=== PATIENT | female | born 1990 | race Caucasian/White ===

== ENCOUNTER 2017-01-05 21:24 | Emergency (ER) | payer OTHER ==
[~2017-01-05] VITALS: Ht 170.2 cm; Wt 146.2 kg
[~2017-01-05 21:24] MED LIST: FLAG500T PO
[2017-01-05 21:28] VITALS: BP 134/73; PULSE 72; RESP 18; TEMP 97.7; O2SAT 97
[2017-01-05] MEDS ORDERED: SODIUM CHLOR 0.9% 1000 ML INJ 1,000 ML IV SCH (21:41)
[2017-01-05] MEDS ORDERED: MORPHINE SULFATE 4 MG/ML INJ IV PUSH ONE ×2 (21:45→23:45)
[2017-01-05] MEDS ORDERED: ONDANSETRON HCL 4 MG/2 ML VIAL IVP ONE (21:45)
[2017-01-05] MEDS ORDERED: SODIUM CHLORIDE 0.9% FLUSH 10 ML FLUSH IV FLUSH PRN (21:45)
[2017-01-05] MEDS ORDERED: KETOROLAC TROMETHAMINE 30 MG/ML (IVP) VIAL IVP ONE (21:45)
--- NOTE | 2017-01-05 21:48 | PD ---
HPI Chief Complaint: Flank/Kidney Pain Time Seen by Provider: 21:35 Travel History International Travel<30 days: No Contact w/Intl Traveler<30days: No Traveled to known affect area: No History of Present Illness HPI The patient is a 26-year-old female who presents to the emergency department for left flank pain. The patient states she developed left flank pain this morning which is progressively worsened. Pain is located left lower flank, radiates into the suprapubic region and into the left lower back. The patient initially was crampy, intermittent, but is now sharper and more constant. The patient does complain of mild nausea but denies any vomiting, diarrhea, or constipation. The patient's last menstrual cycle ended 2 days ago , she denies any current vaginal bleeding or discharge. The patient denies any dysuria, frequency, urgency, fever, chills, or sweats. The patient denies any previous abdominal surgeries. Symptoms are moderate without any current alleviating or exacerbating factors. The patient denies any history of nephrolithiasis, colitis, or diverticulitis. PFSH Past Medical History Medical History: Denies Significant Hx Cancer: No Psychiatric: No Seizures: No Thyroid Disease: No Ulcer: No ?: Not LMP: ended 2 days ago Past Surgical History Surgical History: No Previous Surgery Social History Alcohol Use: No Tobacco Use: Yes (2-3 CIGARETTES PER WEEK) Substance Use: No Allergies-Medications (Allergen,Severity, Reaction): Coded Allergies: Decadron (Unverified Allergy, Intermediate, HIVES, RASH, 01/05/17) Reported Meds & Prescriptions Reported Meds & Active Scripts Active No Active Prescriptions or Reported Medications Review of Systems Except as stated in HPI: all other systems reviewed are Neg General / Constitutional: No: Fever HENT: No: Lightheadedness Cardiovascular: No: Chest Pain or Discomfort Respiratory: No: Shortness of Breath Gastrointestinal: Positive: Nausea, Abdominal Pain, No: Vomiting, Diarrhea, Constipation, Changes in Bowel Habits Genitourinary: Positive: Flank Pain, No: Urgency, Frequency, Dysuria, Hematuria, Discharge, Vaginal Bleeding Skin: No Rash Physical Exam Narrative GENERAL: Awake, alert, pleasant 26-year-old female who appears her stated age and is in no acute respiratory distress. SKIN: Focused skin assessment warm/dry. HEAD: Atraumatic. Normocephalic. EYES: Pupils equal and round. No scleral icterus. No injection or drainage. ENT: No nasal bleeding or discharge. Mucous membranes pink and moist. NECK: Trachea midline. No JVD. CARDIOVASCULAR: Regular rate and rhythm. No murmur appreciated. RESPIRATORY: No accessory muscle use. Clear to auscultation. Breath sounds equal bilaterally. GASTROINTESTINAL: Abdomen soft, obese, mild tenderness in the left flank, left lower quadrant, suprapubic. Negative Horta's. Negative McBurney's. Back: Positive left CVA tenderness. MUSCULOSKELETAL: No obvious deformities. No clubbing. No cyanosis. No edema. NEUROLOGICAL: Awake and alert. No obvious cranial nerve deficits. Motor grossly within normal limits. Normal speech. PSYCHIATRIC: Appropriate mood and affect; insight and judgment normal. Data Data Last Documented VS Vital Signs Date Time Temp Pulse Resp B/P Pulse Ox O2 Delivery O2 Flow Rate FiO2 01/05/17 23:22 76 122/60 100 Room Air 01/05/17 22:16 18 01/05/17 21:28 97.7 Orders Complete Blood Count With Diff (01/05/17 21:41) Comprehensive Metabolic Panel (01/05/17 21:41) Lipase (01/05/17 21:41) Urinalysis - C+S If Indicated (01/05/17 21:41) Ct Abd/Pel W/O Iv Contrast (01/05/17 21:41) Iv Access Insert/Monitor (01/05/17 21:41) Ecg Monitoring (01/05/17 21:41) Oximetry (01/05/17 21:41) Morphine Inj (Morphine Inj) (01/05/17 21:45) Ondansetron Inj (Zofran Inj) (01/05/17 21:45) Sodium Chlor 0.9% 1000 Ml Inj (Ns 1000 M (01/05/17 21:41) Sodium Chloride 0.9% Flush (Ns Flush) (01/05/17 21:45) Ketorolac Inj (Toradol Inj) (01/05/17 21:45) Ed Urine Pregnancytest Poc (01/05/17 21:41) Us Pelvis Comp W Doppler (01/05/17 23:37) Labs Laboratory Tests Test 01/05/17 01/05/17 21:45 21:55 Urine Color YELLOW Urine Turbidity SLIGHT Urine pH 7.0 Urine Specific [place] 1.021 Urine Protein TRACE mg/dL Urine Glucose (UA) NEG mg/dL Urine Ketones NEG mg/dL Urine Occult Blood LARGE Urine Nitrite NEG Urine Bilirubin NEG Urine Leukocyte Esterase TRACE Urine RBC 10-14 /hpf Urine WBC 6-8 /hpf Urine Squamous Epithelial 6-8 /hpf Cells Urine Bacteria OCC /hpf Microscopic Urinalysis Comment CULT NOT INDICATED White Blood Count 8.1 TH/MM3 Red Blood Count 4.62 MIL/MM3 Hemoglobin 11.8 GM/DL Hematocrit 35.8 % Mean Corpuscular Volume 77.4 FL Mean Corpuscular Hemoglobin 25.5 PG Mean Corpuscular Hemoglobin 33.0 % Concent Red Cell Distribution Width 13.9 % Platelet Count 366 TH/MM3 Mean Platelet Volume 7.5 FL Neutrophils (%) (Auto) 57.4 % Lymphocytes (%) (Auto) 32.5 % Monocytes (%) (Auto) 7.6 % Eosinophils (%) (Auto) 1.7 % Basophils (%) (Auto) 0.8 % Neutrophils # (Auto) 4.7 TH/MM3 Lymphocytes # (Auto) 2.6 TH/MM3 Monocytes # (Auto) 0.6 TH/MM3 Eosinophils # (Auto) 0.1 TH/MM3 Basophils # (Auto) 0.1 TH/MM3 CBC Comment DIFF FINAL Differential Comment Sodium Level 140 MEQ/L Potassium Level 3.8 MEQ/L Chloride Level 106 MEQ/L Carbon Dioxide Level 27.0 MEQ/L Anion Gap 7 MEQ/L Blood Urea Nitrogen 15 MG/DL Creatinine 0.88 MG/DL Estimat Glomerular Filtration 77 ML/MIN Rate Random Glucose 100 MG/DL Calcium Level 8.9 MG/DL Total Bilirubin 0.2 MG/DL Aspartate Amino Transf 14 U/L (AST/SGOT) Alanine Aminotransferase 16 U/L (ALT/SGPT) Alkaline Phosphatase 81 U/L Total Protein 7.3 GM/DL Albumin 3.3 GM/DL Lipase 121 U/L MDM Medical Decision Making Medical Screen Exam Complete: Yes Emergency Medical Condition: Yes Medical Record Reviewed: Yes Interpretation(s) Laboratory Tests Test 01/05/17 01/05/17 21:45 21:55 Urine Color YELLOW Urine Turbidity SLIGHT Urine pH 7.0 Urine Specific [place] 1.021 Urine Protein TRACE mg/dL Urine Glucose (UA) NEG mg/dL Urine Ketones NEG mg/dL Urine Occult Blood LARGE Urine Nitrite NEG Urine Bilirubin NEG Urine Leukocyte Esterase TRACE Urine RBC 10-14 /hpf Urine WBC 6-8 /hpf Urine Squamous Epithelial 6-8 /hpf Cells Urine Bacteria OCC /hpf Microscopic Urinalysis Comment CULT NOT INDICATED White Blood Count 8.1 TH/MM3 Red Blood Count 4.62 MIL/MM3 Hemoglobin 11.8 GM/DL Hematocrit 35.8 % Mean Corpuscular Volume 77.4 FL Mean Corpuscular Hemoglobin 25.5 PG Mean Corpuscular Hemoglobin 33.0 % Concent Red Cell Distribution Width 13.9 % Platelet Count 366 TH/MM3 Mean Platelet Volume 7.5 FL Neutrophils (%) (Auto) 57.4 % Lymphocytes (%) (Auto) 32.5 % Monocytes (%) (Auto) 7.6 % Eosinophils (%) (Auto) 1.7 % Basophils (%) (Auto) 0.8 % Neutrophils # (Auto) 4.7 TH/MM3 Lymphocytes # (Auto) 2.6 TH/MM3 Monocytes # (Auto) 0.6 TH/MM3 Eosinophils # (Auto) 0.1 TH/MM3 Basophils # (Auto) 0.1 TH/MM3 CBC Comment DIFF FINAL Differential Comment Sodium Level 140 MEQ/L Potassium Level 3.8 MEQ/L Chloride Level 106 MEQ/L Carbon Dioxide Level 27.0 MEQ/L Anion Gap 7 MEQ/L Blood Urea Nitrogen 15 MG/DL Creatinine 0.88 MG/DL Estimat Glomerular Filtration 77 ML/MIN Rate Random Glucose 100 MG/DL Calcium Level 8.9 MG/DL Total Bilirubin 0.2 MG/DL Aspartate Amino Transf 14 U/L (AST/SGOT) Alanine Aminotransferase 16 U/L (ALT/SGPT) Alkaline Phosphatase 81 U/L Total Protein 7.3 GM/DL Albumin 3.3 GM/DL Lipase 121 U/L Differential Diagnosis Differential diagnosis includes nephrolithiasis, pyelonephritis, diverticulitis , ectopic , UTI, ovarian torsion, ovarian cyst, colitis. Narrative Course IV was established, labs are drawn and sent, and the patient was placed on cardiac telemetry monitoring and continuous pulse oximetry monitoring. The patient was administered IV fluids, morphine, Toradol, and Zofran. UA was sent to lab and bedside UA test was obtained. CT of the abdomen and pelvis without contrast was ordered to evaluate for possible nephrolithiasis. UA test was negative. UA reveals a few RBCs and WBCs. However, CT of the abdomen and pelvis reveals a 5.8 x 8.6 cm left ovarian dermoid or teratoma with small moderate free fluid in the pelvis, no acute findings within the abdomen. Therefore, formal ultrasound was ordered to rule out torsion. Patient signed out to the physician, Dr. Arias, at midnight. If the patient has ovarian torsion, she very well may need surgery, if it is negative, she will need outpatient ARROW POINT ATTACHER follow-up for definitive management. Diagnosis Primary Impression: Ovarian mass, left Scripts No Active Prescriptions or Reported Meds Condition: Stable Rojas Hansen MD January 05, 2017 21:48
[2017-01-05 22:16] VITALS: PULSE 74; RESP 18; O2SAT 98
[2017-01-05 22:20] LABS: BLOOD, URINE LARGE (NEG); GLUCOSE,URINE NEG (NEG); KETONE, URINE NEG (NEG); NITRITE,URINE NEG (NEG)
[2017-01-05 22:21] LABS: AUTOMATED NEUTROPHIL # 4.7 TH/MM3 (1.8-7.7); BASOPHIL # 0.1 TH/MM3 (0-0.2); BASOPHIL % 0.8 % (0.0-2.0); EOSINOPHIL # 0.1 TH/MM3 (0-0.4); EOSINOPHIL % 1.7 % (0.0-4.0); HEMATOCRIT 35.8 % (35.0-46.0); HEMO FLAGS DIFF FINAL; LYMPH % 32.5 % (9.0-44.0); LYMPHOCYTE # 2.6 TH/MM3 (1.0-4.8); MEAN CELL VOLUME 77.4 FL (80.0-100.0); MEAN CORPUSCULAR HEMOGLOBIN 25.5 PG (27.0-34.0); MONO % 7.6 % (0.0-8.0); NEUT % 57.4 % (16.0-70.0); PLATELET COUNT 366 TH/MM3 (150-450); RED BLOOD COUNT 4.62 MIL/MM3 (4.00-5.30); RED CELL DISTRIBUTION WIDTH 13.9 % (11.6-17.2); WHITE BLOOD COUNT 8.1 TH/MM3 (4.0-11.0)
[2017-01-05 22:29] LABS: CHLORIDE 106 MEQ/L (98-107); POTASSIUM 3.8 MEQ/L (3.5-5.1); SODIUM (NA) 140 MEQ/L (136-145)
[2017-01-05 22:30] LABS: URINE COLOR YELLOW (YELLW/STRAW)
[2017-01-05 22:31] LABS: BACTERIA, URINE OCC /hpf; COMMENT (UR) CULT NOT INDICATED; CULTURE IF INDICATED CULT NOT INDICATED
[2017-01-05 22:33] LABS: ANION GAP 7 MEQ/L (5-15); BLOOD UREA NITROGEN 15 MG/DL (7-18)
[2017-01-05 22:36] LABS: ALT (GPT) 16 U/L (10-53); AST (GOT) 14 U/L (15-37); GLOMERULAR FILTRATION RATE 77 ML/MIN (>89)
[2017-01-05 22:37] LABS: TOTAL BILIRUBIN ADULT 0.2 MG/DL (0.2-1.0)
[2017-01-05 22:39] LABS: ALKALINE PHOSPHATASE 81 U/L (45-117)
[2017-01-05 23:22] VITALS: BP 122/60; PULSE 76; O2SAT 100
--- NOTE | 2017-01-05 23:36 | RADHPO ---
EXAM DATE/TIME: 01/05/2017 23:03 [facility] COMPARISON: No previous studies available for comparison. INDICATIONS : Left flank pain. ORAL CONTRAST: No oral contrast ingested. RADIATION DOSE: 28 CTDIvol (mGy) MEDICAL HISTORY : None SURGICAL HISTORY : None. ENCOUNTER: Initial ACUITY: 1 day PAIN SCALE: 6/10 LOCATION: Left flank TECHNIQUE: Volumetric scanning of the abdomen and pelvis was performed. Using automated exposure control and ad justment of the mA and/or kV according to patient size, radiation dose was kept as low as reasonably achievable to obtain optimal diagnostic quality images. FINDINGS: Lung bases are clear and no acute findings in the liver, spleen, adrenals, kidneys pancreas and no fr ee fluid. No bowel obstruction. No adenopathy. No calcified gallstones or biliary ductal dilatation. Within the pelvis there is a left adnexal mass measuring up to 8.6 x 5.8 cm. Mass contains dense calc ification and fat and is most characteristic of a left ovarian dermoid or teratoma. CONCLUSION: 1. 5.8 x 8.6 cm left ovarian dermoid or teratoma. Small amount of free fluid in the pelvis. 2. No acute findings within the abdomen. Specifically no renal calculi or obstructive uropathy. Small amount of free fluid present in the pelvis. Armando Avila MD on January 05, 2017 at 23:29 Board Certified Radiologist. This report was verified electronically.
[2017-01-05] MEDS ORDERED: SODIUM CHLOR 0.9% 1000 ML INJ 1,000 ML IV ONE (23:45)
--- NOTE | 2017-01-05 23:47 | PD ---
Physical Exam Date Seen by Provider: January 05, 2017 Time Seen by Provider: 23:47 Narrative Accepted in transfer of care from Dr. Hansen Data Data Last Documented VS Vital Signs Date Time Temp Pulse Resp B/P Pulse Ox O2 Delivery O2 Flow Rate FiO2 01/05/17 23:22 76 122/60 100 Room Air 01/05/17 22:16 18 01/05/17 21:28 97.7 Orders Complete Blood Count With Diff (01/05/17 21:41) Comprehensive Metabolic Panel (01/05/17 21:41) Lipase (01/05/17 21:41) Urinalysis - C+S If Indicated (01/05/17 21:41) Ct Abd/Pel W/O Iv Contrast (01/05/17 21:41) Iv Access Insert/Monitor (01/05/17 21:41) Ecg Monitoring (01/05/17 21:41) Oximetry (01/05/17 21:41) Morphine Inj (Morphine Inj) (01/05/17 21:45) Ondansetron Inj (Zofran Inj) (01/05/17 21:45) Sodium Chlor 0.9% 1000 Ml Inj (Ns 1000 M (01/05/17 21:41) Sodium Chloride 0.9% Flush (Ns Flush) (01/05/17 21:45) Ketorolac Inj (Toradol Inj) (01/05/17 21:45) Ed Urine Pregnancytest Poc (01/05/17 21:41) Morphine Inj (Morphine Inj) (01/05/17 23:45) Sodium Chlor 0.9% 1000 Ml Inj (Ns 1000 M (01/05/17 23:45) Us Pelvis Comp W Dop Transvag (01/05/17 23:37) Labs Laboratory Tests Test 01/05/17 01/05/17 21:45 21:55 Urine Color YELLOW Urine Turbidity SLIGHT Urine pH 7.0 Urine Specific [place] 1.021 Urine Protein TRACE mg/dL Urine Glucose (UA) NEG mg/dL Urine Ketones NEG mg/dL Urine Occult Blood LARGE Urine Nitrite NEG Urine Bilirubin NEG Urine Leukocyte Esterase TRACE Urine RBC 10-14 /hpf Urine WBC 6-8 /hpf Urine Squamous Epithelial 6-8 /hpf Cells Urine Bacteria OCC /hpf Microscopic Urinalysis Comment CULT NOT INDICATED White Blood Count 8.1 TH/MM3 Red Blood Count 4.62 MIL/MM3 Hemoglobin 11.8 GM/DL Hematocrit 35.8 % Mean Corpuscular Volume 77.4 FL Mean Corpuscular Hemoglobin 25.5 PG Mean Corpuscular Hemoglobin 33.0 % Concent Red Cell Distribution Width 13.9 % Platelet Count 366 TH/MM3 Mean Platelet Volume 7.5 FL Neutrophils (%) (Auto) 57.4 % Lymphocytes (%) (Auto) 32.5 % Monocytes (%) (Auto) 7.6 % Eosinophils (%) (Auto) 1.7 % Basophils (%) (Auto) 0.8 % Neutrophils # (Auto) 4.7 TH/MM3 Lymphocytes # (Auto) 2.6 TH/MM3 Monocytes # (Auto) 0.6 TH/MM3 Eosinophils # (Auto) 0.1 TH/MM3 Basophils # (Auto) 0.1 TH/MM3 CBC Comment DIFF FINAL Differential Comment Sodium Level 140 MEQ/L Potassium Level 3.8 MEQ/L Chloride Level 106 MEQ/L Carbon Dioxide Level 27.0 MEQ/L Anion Gap 7 MEQ/L Blood Urea Nitrogen 15 MG/DL Creatinine 0.88 MG/DL Estimat Glomerular Filtration 77 ML/MIN Rate Random Glucose 100 MG/DL Calcium Level 8.9 MG/DL Total Bilirubin 0.2 MG/DL Aspartate Amino Transf 14 U/L (AST/SGOT) Alanine Aminotransferase 16 U/L (ALT/SGPT) Alkaline Phosphatase 81 U/L Total Protein 7.3 GM/DL Albumin 3.3 GM/DL Lipase 121 U/L [facility] Medical Record Reviewed: Yes Supervised Visit with SHERYL: No Interpretation(s) pelvic US: CONCLUSION: 1. 5.5 cm left ovarian mass better characterized on recent CT as an ovarian dermoid. 2. Free fluid in the pelvis. Right ovary not clearly visualized. 3. Uterus unremarkable except nabothian cysts. Armando Avila MD on January 06, 2017 at 0:51 Board Certified Radiologist. This report was verified electronically. ADDENDUM: There is positive blood flow to the left ovary without evidence for torsion. Armando Avila MD on January 06, 2017 at 1:01 Board Certified Radiologist. This report was verified electronically. Differential Diagnosis Accepted in transfer of care from Dr. Hansen; please refer to his dictation Narrative Course Accepted in transfer of care from Dr. Hansen; follow-up of pending ultrasound and patient disposition At 1 AM discussed imaging study ultrasound with Doppler with reading radiologist Dr. Avila who reports that there is indeed blood supply to the left ovary without concern for ovarian torsion by ultrasound imaging. This information is shared with the patient has resting comfortably and in no apparent distress or discomfort on the exam stretcher. Patient this time is stable for outpatient management and follow-up with plant health manager. Diagnosis Primary Impression: Ovarian mass, left Referrals: [facility] Sewer call for appointment Technical Implementation Lead LASER BEAM COLOR SCANNER OPERATOR: Dr Raya Patient Instructions: General Instructions Additional Instruction: Follow-up with plant health manager call office to schedule follow-up appointment Return to the emergency department for any concerns or change in condition May take as tolerated ibuprofen/Advil/Motrin 800 mg as often as every 8 hours as tolerated as needed for pain associated with inflammation Return to the emergency department for any concerns or change in condition Increase fluid hydration Scripts No Active Prescriptions or Reported Meds Disposition: 01 DISCHARGE HOME Condition: Stable Shayna Arias MD January 05, 2017 23:47
--- NOTE | 2017-01-06 00:56 | RADHPO ---
EXAM DATE/TIME: 01/05/2017 23:58 This report includes an Addendum and supersedes previous reports for this exam. [facility] COMPARISON: No previous studies available for comparison. INDICATIONS : Pelvic pain. MEDICAL HISTORY : Pelvic pain. SURGICAL HISTORY : None. ENCOUNTER: Initial ACUITY: 1 day PAIN SCORE: 6/10 LOCATION: Bilateral pelvis MEASUREMENTS: UTERUS: 9.9 x 5.1 x 5.2 cm ENDOMETRIAL STRIPE: 11 mm RIGHT OVARY: 3.8 x 1.5 x 1.5 cm LEFT OVARY: Not visualized. FINDINGS: Examination is somewhat limited. Right ovary not clearly visualized. There is a left ovarian mass lola suring up to 5.5 cm which correlates with recent CT findings of a dermoid. Small amount of free fluid in the cul-de-sac. Uterus unremarkable except for nabothian cysts measuring up to 1.6 cm. CONCLUSION: 1. 5.5 cm left ovarian mass better characterized on recent CT as an ovarian dermoid. 2. Free fluid in the pelvis. Right ovary not clearly visualized. 3. Uterus unremarkable except nabothian cysts. Armando Avila MD on January 06, 2017 at 0:51 Board Certified Radiologist. This report was verified electronically. ADDENDUM: There is positive blood flow to the left ovary without evidence for torsion. Armando Avila MD on January 06, 2017 at 1:01 Board Certified Radiologist. This report was verified electronically.
== END 2017-01-06 01:17 | disposition home or self-care (01) ==
LOC: PHED 21:24
DX: N83.9 Noninflammatory disorder of ovary, fallopian tube and broad ligament, unspecified (principal); Z72.0 Tobacco use
CPT/HCPCS: 74176; 76830; 76856; 80053; 81001; 83690; 84703; 85025; 93975; 96361; 96374; 96375; 96376; 99284; J1885; J2270; J2405; J7030

== ENCOUNTER 2017-01-13 01:49 | Emergency (ER) | payer OTHER ==
[~2017-01-13] VITALS: Ht 170.2 cm; Wt 120.0 kg
[2017-01-13 01:52] VITALS: BP 160/88; PULSE 78; RESP 16; TEMP 97.5; O2SAT 100
--- NOTE | 2017-01-13 03:40 | PD ---
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 Patient was just recently seen in the emergency department identified to have large ovarian mass concerning for teratoma. Patient was seen by her WINCH STRIPPER Dr. Roman on Saturday but they were unable to retrieve medical records so made an appointment to see the patient again on Saturday. Patient states this evening she took ibuprofen without relief of onset of pain that has recurred and is as severe or the same as a few days ago when she was seen in the emergency department. Patient does not report any vaginal discharge or vaginal bleeding. No fever or chills. No anorexia. PFSH Past Medical History Narrative Medical 1 PARA 1 ovarian cyst teratoma; no tobacco use alcohol use; nursing notes reviewed Cancer: No Diminished Hearing: No Psychiatric: No Immunizations Current: Yes Seizures: No Thyroid Disease: No Ulcer: No Tetanus Vaccination: Unknown Influenza Vaccination: Yes ?: Not LMP: 01/01/17 : 1 Para: 1 Past Surgical History Oral Surgery: Yes Social History Alcohol Use: No Tobacco Use: No Substance Use: No Allergies-Medications (Allergen,Severity, Reaction): Coded Allergies: Decadron (Unverified Allergy, Intermediate, HIVES, RASH, 01/13/17) Reported Meds & Prescriptions Reported Meds & Active Scripts Active No Active Prescriptions or Reported Medications Review of Systems Except as stated in HPI: all other systems reviewed are Neg Physical Exam Narrative GENERAL: Well-developed obese female in no acute distress no respiratory distress SKIN: Warm and dry. HEAD: Normocephalic. EYES: No scleral icterus. No injection or drainage. NECK: Supple, trachea midline. No JVD or lymphadenopathy. CARDIOVASCULAR: Regular rate and rhythm without murmurs, gallops, or rubs. RESPIRATORY: Breath sounds equal bilaterally. No accessory muscle use. GASTROINTESTINAL: Abdomen soft, bilateral lower quadrant tenderness right greater than left no guarding or rebound, nondistended. MUSCULOSKELETAL: No cyanosis, or edema. BACK: Nontender without obvious deformity. Left-sided CVA tenderness. Data Data Last Documented VS Vital Signs Date Time Temp Pulse Resp B/P Pulse Ox O2 Delivery O2 Flow Rate FiO2 01/13/17 06:04 68 14 139/74 100 Room Air 01/13/17 01:52 97.5 Orders Basic Metabolic Panel (Bmp) (01/13/17 03:36) Complete Blood Count With Diff (01/13/17 03:36) Urinalysis - C+S If Indicated (01/13/17 03:36) Iv Access Insert/Monitor (01/13/17 03:36) Ed Urine Pregnancytest Poc (01/13/17 03:36) Ondansetron Inj (Zofran Inj) (01/13/17 03:45) Morphine Inj (Morphine Inj) (01/13/17 03:45) Sodium Chlor 0.9% 1000 Ml Inj (Ns 1000 M (01/13/17 03:45) Ketorolac Inj (Toradol Inj) (01/13/17 06:15) Labs Laboratory Tests Test 01/13/17 04:35 White Blood Count 8.6 TH/MM3 Red Blood Count 4.98 MIL/MM3 Hemoglobin 12.6 GM/DL Hematocrit 38.8 % Mean Corpuscular Volume 77.9 FL Mean Corpuscular Hemoglobin 25.4 PG Mean Corpuscular Hemoglobin 32.6 % Concent Red Cell Distribution Width 14.7 % Platelet Count 357 TH/MM3 Mean Platelet Volume 7.6 FL Neutrophils (%) (Auto) 65.5 % Lymphocytes (%) (Auto) 25.8 % Monocytes (%) (Auto) 7.0 % Eosinophils (%) (Auto) 1.4 % Basophils (%) (Auto) 0.3 % Neutrophils # (Auto) 5.6 TH/MM3 Lymphocytes # (Auto) 2.2 TH/MM3 Monocytes # (Auto) 0.6 TH/MM3 Eosinophils # (Auto) 0.1 TH/MM3 Basophils # (Auto) 0.0 TH/MM3 CBC Comment DIFF FINAL Differential Comment Urine Color LIGHT-YELLOW Urine Turbidity HAZY Urine pH 7.5 Urine Specific [place] 1.008 Urine Protein NEG mg/dL Urine Glucose (UA) NEG mg/dL Urine Ketones NEG mg/dL Urine Occult Blood NEG Urine Nitrite NEG Urine Bilirubin NEG Urine Urobilinogen LESS THAN 2.0 MG/DL Urine Leukocyte Esterase MOD Urine RBC 1 /hpf Urine WBC 4 /hpf Urine Squamous Epithelial 4 /hpf Cells Urine Bacteria RARE /hpf Microscopic Urinalysis Comment CULT NOT INDICATED Sodium Level 140 MEQ/L Potassium Level 4.2 MEQ/L Chloride Level 103 MEQ/L Carbon Dioxide Level 27.3 MEQ/L Anion Gap 10 MEQ/L Blood Urea Nitrogen 11 MG/DL Creatinine 0.82 MG/DL Estimat Glomerular Filtration 83 ML/MIN Rate Random Glucose 99 MG/DL Calcium Level 8.7 MG/DL MDM Medical Decision Making Medical Screen Exam Complete: Yes Emergency Medical Condition: Yes Medical Record Reviewed: Yes Interpretation(s) Vital Signs Date Time Temp Pulse Resp B/P Pulse Ox O2 Delivery O2 Flow Rate FiO2 01/13/17 06:04 68 14 139/74 100 Room Air 01/13/17 01:52 97.5 78 16 160/88 100 Room Air CBC & BMP Diagram 01/13/17 04:35 [id number] hCG: Negative Differential Diagnosis Renal colic ruptured ovarian cysts ectopic torsion appendicitis musculoskeletal pain andrew Narrative Course iv ACCESS OBTAINED SPECIMENS COLLECTED AND SENT FOR RESULTING patient administered morphine sulfate 4 mg IV and Zofran 4 mg IV along with normal saline bolus It is now 6 AM patient is clinically improved minimal tenderness to direct palpation of the abdomen no guarding or rebound; patient just had CT abdomen and pelvis on the . Patient's had no fever no chills no vomiting no dysuria no frequency no abnormal normal vaginal bleeding. Patient is desirous of being discharged to home. At this point in time and seems patient is stable for outpatient management and she is to follow-up with her weight yardage checker as scheduled Saturday. Diagnosis Primary Impression: Recurrent abdominal pain Additional Impression: Ovarian mass, left Referrals: Cotton Farmer 2 days Patient Instructions: General Instructions, Narcotic given in the ED Departure Forms: Tests/Procedures, Work Release Special Instructions: no work x 2 days Additional Instructions: Increase fluid hydration No work for 2 days Monitor temperature every 4 hours with thermometer take acetaminophen/Tylenol every 4 hours for fever 100.4F or greater Take ibuprofen/Advil 6 and a milligrams as often as every 6 hours Med/Other Pt SpecificInfo: Prescription(s) given Scripts Hydrocodone-Acetaminophen (Lortab)5-325 Mg Tab1 Tab PO Q6H PRN (PAIN) #10 TAB Ref 0 Prov:Shayna Arias MD 5/28/17 Ondansetron Odt (Zofran Odt)4 Mg Tab4 Mg SL Q6HR PRN (Nausea/Vomiting) #10 TAB Ref 0 Prov:Shayna Arias MD 01/13/17 Disposition: 01 DISCHARGE HOME Condition: Stable Shayna Arias MD January 13, 2017 03:40
[2017-01-13] MEDS ORDERED: MORPHINE SULFATE 4 MG/ML INJ IV PUSH ONE (03:45)
[2017-01-13] MEDS ORDERED: ONDANSETRON HCL 4 MG/2 ML VIAL IV PUSH ONE (03:45)
[2017-01-13] MEDS ORDERED: SODIUM CHLOR 0.9% 1000 ML INJ 1,000 ML IV ONE (03:45)
[2017-01-13 05:05] LABS: AUTOMATED NEUTROPHIL # 5.6 TH/MM3 (1.8-7.7); BASOPHIL % 0.3 % (0.0-2.0); EOSINOPHIL # 0.1 TH/MM3 (0-0.4); EOSINOPHIL % 1.4 % (0.0-4.0); HEMATOCRIT 38.8 % (35.0-46.0); HEMO FLAGS DIFF FINAL; LYMPH % 25.8 % (9.0-44.0); LYMPHOCYTE # 2.2 TH/MM3 (1.0-4.8); MEAN CELL VOLUME 77.9 FL (80.0-100.0); MEAN CORPUSCULAR HEMOGLOBIN 25.4 PG (27.0-34.0); MEAN CORPUSCULAR HGB CONC 32.6 % (32.0-36.0); NEUT % 65.5 % (16.0-70.0); PLATELET COUNT 357 TH/MM3 (150-450); RED BLOOD COUNT 4.98 MIL/MM3 (4.00-5.30); RED CELL DISTRIBUTION WIDTH 14.7 % (11.6-17.2); WHITE BLOOD COUNT 8.6 TH/MM3 (4.0-11.0)
[2017-01-13 05:12] LABS: BACTERIA, URINE RARE /hpf; BLOOD, URINE NEG (NEG); COMMENT (UR) CULT NOT INDICATED; CULTURE IF INDICATED CULT NOT INDICATED; GLUCOSE,URINE NEG (NEG); KETONE, URINE NEG (NEG); NITRITE,URINE NEG (NEG); PH, URINE 7.5 (5.0-8.5); SQUAMOUS EPITHELIAL CELL URINE 4 /hpf (0-5); URINE COLOR LIGHT-YELLOW (YELLW/STRAW)
[2017-01-13 05:19] LABS: BICARBONATE 27.3 MEQ/L (21.0-32.0); POTASSIUM 4.2 MEQ/L (3.5-5.1)
[2017-01-13 06:04] VITALS: BP 139/74; PULSE 68; RESP 14; O2SAT 100
[2017-01-13] MEDS ORDERED: KETOROLAC TROMETHAMINE 30 MG/ML (IVP) VIAL IV PUSH ONE (06:15)
[2017-01-13] MEDS ORDERED: HYDR-3533 PO (06:46)
[2017-01-13] MEDS ORDERED: ZOFR4TAB3 SL (06:46)
== END 2017-01-13 07:26 | disposition home or self-care (01) ==
LOC: NEPC 01:49
DX: R10.31 Right lower quadrant pain (principal); N83.9 Noninflammatory disorder of ovary, fallopian tube and broad ligament, unspecified
CPT/HCPCS: 80048; 81001; 84703; 85025; 96374; 96375; 99284; J1885; J2270; J2405; J7030

== ENCOUNTER 2017-09-17 20:40 | Emergency (ER) | payer OTHER ==
[~2017-09-17] VITALS: Ht 170.2 cm; Wt 148.3 kg
[~2017-09-17 20:40] MED LIST changes: -FLAG500T PO; +HYDR-3533 PO; +ZOFR4TAB3 SL
[2017-09-17 20:56] VITALS: BP 130/80; PULSE 92; RESP 18; TEMP 98.1; O2SAT 98
[2017-09-17 22:50] LABS: BILIRUBIN, URINE NEG (NEG); GLUCOSE,URINE NEG (NEG); KETONE, URINE NEG (NEG); NITRITE,URINE NEG (NEG); PH, URINE 5.5 (5.0-8.5); URINE LEUKOCYTE ESTERASE NEG (NEG)
[2017-09-17 22:55] LABS: BLOOD, URINE TRACE (NEG)
[2017-09-17 22:57] LABS: RBC, URINE 0-2 /hpf (0-3); SQUAMOUS EPITHELIAL CELL URINE 0-5 /hpf (0-5); URINE COLOR STRAW (YELLW/STRAW); WBC, URINE 0-2 /hpf (0-5)
[2017-09-17] MEDS ORDERED: LEVO.075 PO (22:59)
[2017-09-17] MEDS ORDERED: PRIL20TA2 (22:59)
[2017-09-17] MEDS ORDERED: VALS1TAB63 PO (22:59)
[2017-09-17 23:07] VITALS: BP_SYST 145; PULSE 89; RESP 16; O2SAT 98
[2017-09-17] MEDS ORDERED: ROBA750T PO (23:15)
[2017-09-17] MEDS ORDERED: IBUP1TAB7 PO (23:15)
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
== END 2017-09-17 23:32 | disposition home or self-care (01) ==
LOC: PHED 20:40
DX: S30.1XXA Contusion of abdominal wall, initial encounter (principal); E66.9 Obesity, unspecified; V43.52XA Car driver injured in collision with other type car in traffic accident, initial encounter; Y92.410 Unspecified street and highway as the place of occurrence of the external cause; Z88.8 Allergy status to other drugs, medicaments and biological substances
CPT/HCPCS: 81001; 84703; 99283; P9612